=== PATIENT | female | born 1985 | race Caucasian/White ===

== ENCOUNTER 2023-07-16 18:50 | Emergency (ER) | payer MEDICAID ==
[~2023-07-16] VITALS: Ht 180.3 cm; Wt 77.1 kg
[2023-07-16 19:56] LABS: BASOPHILS % (AUTO) 0.4 % (0.0-2.0); EOSINOPHILS # (AUTO) 0.1 K/uL (0.0-0.7); EOSINOPHILS % (AUTO) 1.2 % (0.0-6.0); HEMATOCRIT 35 % (33-45); HEMOGLOBIN 11.9 g/dL (11.5-14.8); LYMPHOCYTES # (AUTO) 1.9 K/uL (0.8-4.8); LYMPHOCYTES % (AUTO) 23.3 % (20.0-44.0); MEAN CORPUSCULAR HEMOGLOBIN 30 PG (26.0-33.0); MEAN CORPUSCULAR HGB CONC 34 g/dl (31.0-36.0); MEAN CORPUSCULAR VOLUME 87 fL (82-100); MONOCYTES # (AUTO) 0.4 K/uL (0.1-1.30); NEUTROPHILS # (AUTO) 5.8 K/uL (1.8-8.9); NEUTROPHILS % (AUTO) 70.1 % (43.0-81.0); PLATELET COUNT (AUTO) 228 K/uL (150-450); RED BLOOD CELL COUNT(AUTO) 3.99 MIL/uL (4.0-5.2); RED CELL DISTRIBUTION WIDTH 13.4 % (11.5-15.0); WHITE BLOOD COUNT (AUTO) 8.3 K/uL (4.3-11.0)
[2023-07-16 20:02] LABS: CALCIUM, SERUM 8.9 mg/dL (8.5-10.1); CREATININE 0.8 mg/dL (0.6-1.3)
[2023-07-16 20:05] LABS: PREGNANCY TEST URINE QUAL POSITIVE (NEGATIVE)
[2023-07-16 20:09] LABS: APPEARANCE,URINE Clear (CLEAR); BILIRUBIN,URINE Negative (NEGATIVE); BLOOD, URINE Trace-intact Ery/uL (NEGATIVE); COLOR,URINE YELLOW (YELLOW); KETONES,URINE Negative (NEGATIVE); LEUKOCYTE ESTERASE ,URINE Negative (NEGATIVE); NITRITE, URINE Negative (NEGATIVE); PROTEIN,URINE Negative (NEGATIVE); UGLUCOSE Negative (NEGATIVE); UROBILINOGEN,URINE 0.2 EU/dL (0.2)
[2023-07-16 20:10] LABS: ALBUMIN 3.6 g/dL (3.4-5.0); BILIRUBIN,DIRECT 0.2 mg/dL (0.0-0.2); BILIRUBIN,TOTAL 0.6 mg/dL (0.2-1.0); TOTAL PROTEIN, SERUM 7.5 g/dL (6.4-8.2)
[2023-07-16 20:18] LABS: ADD URINE CULTURE NO; BACTERIA,URINE 1+ /HPF (None Seen); RBC,URINE 0-2 /HPF (0-2); WBC,URINE NONE SEEN /HPF (0-3)
[2023-07-16 20:19] LABS: SQUAMOUS EPITHELIAL CELL,UR Few /HPF (None Seen)
[2023-07-16] MEDS: IV NS 0.9% 1,000 ML BAG IV ONE (21:26)
[2023-07-16 22:14] VITALS: TEMP 98.1
[2023-07-16 22:16] VITALS: BP 136/92; O2SAT 98
== END 2023-07-16 22:40 | disposition short-term general hospital (02) ==
LOC: ER 19:03
DX: O00.90 Unspecified ectopic pregnancy without intrauterine pregnancy (principal); R10.2 Pelvic and perineal pain
CPT/HCPCS: 36415; 76856-TC; 80048-TC; 80076-TC; 81001; 83690-TC; 84702-TC; 84703-TC; 85025-TC